=== PATIENT | female | born 1985 | race African-American/Black ===

== ENCOUNTER 2023-06-11 18:16 | Emergency (ER) | payer SELFPAY ==
[2023-06-11 18:19] VITALS: BP 193/138; PULSE 78; RESP 18; TEMP 36.8; O2SAT 100
--- NOTE | 2023-06-11 18:27 | ED.GENADUL_ITS ---
Discharge Plan Disposition Patient Disposition: Home Condition: Stable Discharge Details Clinical Impression: Anaphylaxis ED Provider: Hao Kendrick Home Meds and New Rx's Prescriptions: New prednisone 20 mg tablet 60 mg PO DAILY 4 Days Qty: 12 0RF epinephrine 0.3 mg/0.3 mL auto-injector 0.3 mg IM Q5-15M PRNQty: 2 0RF Rx Instructions: do not exceed 3 doses per episode Continued hydralazine 10 mg Tablet 10 mg PO Q8-10H chlorthalidone 25 mg Tablet 25 mg PO DAILY amitriptyline 25 mg Tablet 25 mg PO HS lisinopril 20 mg Tablet 20 mg PO DAILY diltiazem HCl 120 mg Capsule,Extended Release 24 Hr 120 mg PO DAILY ondansetron HCl 4 mg Tablet 4 mg PO PRN PRN Discharge Instructions Instructions: Anaphylaxis (ED) Additional Instructions: If you have recurrent swelling with itching, difficulty breathing or nausea vomiting use your epi pen and return to the emergency department you can take benadryl as needed, follow dosing instructions on packaging Medical Decision Making 37 yo female who states 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 She states this is similar to prior episodes when she was exposed to broccoli. She is hypertensive on arrival, no hypoxia, she does have noticeable swelling of her face and arms as well as her legs, no rashes but she is scratching her arms and legs, clear lungs, soft abdomen. Given her swelling, pruritus and n/v concern for anaphylxis and will treat with im epi, iv benadryl famotidine and methylprednisolone and reassess. pt feels much better, remains stable, will continue to monitor. pt continues to feel well, no gi or respiratory symptoms and itching symptoms have resolved. She has mild swelling of the face pt continues to be stable, no pruritus or gi/respiratory symptoms and feels well enough for d/c, given no recurrence since being here feel she can be safely discharged, will provide an epi pen and return precautions given. Differential Diagnosis Differential Diagnosis: allergic reaction, anaphylaxis HPI General Mode of arrival: ambulatory . Date/Time Provider Initiated Documentation: 06/11/23 18:22 . Limitations to Documentation: no limitations . Information obtained by: patient . History of Present Illness 37 year old F presents to the emergency department with the chief complaint of swelling of face , described as moderate, Patient started experiencing this minute(s) (20) and it has been constant. No relieving factors improve symptom(s), No exacerbating factors reported . Patient notes denies chest pain, fever/chills and shortness of breath. Patient did receive the following treatments prior to arrival, none Related Data Home Medications Medication Instructions Recorded Confirmed amitriptyline 25 mg tablet 25 mg PO HS 06/11/23 06/11/23 chlorthalidone 25 mg tablet 25 mg PO DAILY 06/11/23 06/11/23 diltiazem HCl 120 mg capsule,24 120 mg PO DAILY 06/11/23 06/11/23 hr,extended release epinephrine 0.3 mg/0.3 mL 0.3 mg (0.3 mL) IM Q5-15M PRN #2 ea 06/11/23 injection, auto-injector hydralazine 10 mg tablet 10 mg PO Q8-10H 06/11/23 06/11/23 lisinopril 20 mg tablet 20 mg PO DAILY 06/11/23 06/11/23 ondansetron HCl 4 mg tablet 4 mg PO PRN PRN 06/11/23 06/11/23 prednisone 20 mg tablet 60 mg PO DAILY 4 days #12 tabs 06/11/23 Previous Rx's Medication Instructions Recorded epinephrine 0.3 mg/0.3 mL 0.3 mg (0.3 mL) IM Q5-15M PRN #2 ea 06/11/23 injection, auto-injector prednisone 20 mg tablet 60 mg PO DAILY 4 days #12 tabs 06/11/23 Allergies Allergy/AdvReac Type Severity Reaction Status Date / Time broccoli Allergy Severe Swelling/Ed Unverified 06/11/23 18:22 janeth General Stated Complaint: Allergic ANDRIY: 2 Review of Systems All systems reviewed & are unremarkable except as noted in HPI and below Constitutional Constitutional: Denies chills, Denies fever(s) and Denies weakness Cardiovascular Cardiovascular: Denies chest pain and Denies dyspnea Respiratory Respiratory: Denies cough and Denies dyspnea Gastrointestinal Gastrointestinal: Denies abdominal pain, Denies nausea and Denies vomiting Neurologic Neurologic: Denies weakness Psychiatric Psychiatric: Denies depression PFSH All Active Problems (Updated 06/11/23 @ 20:08 by Hao Kendrick MD) Anaphylaxis (Acute) Social History Smoking/Tobacco Use Status: Never Smoking risk assessment performed?: Yes Alcohol Intake: current Alcohol Intake frequency: holidays/special occasions only Alcohol type: wine Drug use: Never Substance use type: does not use Housing: house Exam Const General: no acute distress Orientation: alert [facility] Head: no palpable skull fracture and atraumatic Ears: external ears normal General nose exam: external nose normal Mouth: moist mucous membranes Eyes General: appearance normal, both eyes and all related structures Neck Neck: normal visual inspection Resp Effort & Inspection: normal respiratory effort and able to speak in complete sentences Auscultation: clear to auscultation bilaterally Cardio Rate: regular rate GI Palpation: soft and nontender Skin General skin exam: no rashes or lesions noted Neuro General: patient alert and patient oriented x3 Extrem General: normal to inspection Psych Mental Status: mental status grossly normal Course Vital Signs Vital signs: Vital Signs Temperature 36.8 C 06/11/23 18:19 Pulse 78 06/11/23 18:19 Respiratory Rate 18 06/11/23 18:19 Blood Pressure 193/138 H 06/11/23 18:19 Pulse Oximetry 100 06/11/23 18:19 Temperature 36.8 C 06/11/23 18:19 Temperature Source Oral 06/11/23 18:19 Pulse 78 06/11/23 18:19 Respiratory Rate 18 06/11/23 18:19 Respiratory Effort Normal, Non-Labored 06/11/23 18:25 Respiratory Pattern Normal 06/11/23 18:25 Blood Pressure 193/138 H 06/11/23 18:19 Blood Pressure Position Sitting 06/11/23 18:19 Pulse Oximetry 100 06/11/23 18:19 Oxygen Delivery Method Room Air 06/11/23 18:19 Oxygen Flow Rate 0 06/11/23 18:19 Pain Level 0 06/11/23 18:19 Critical Care Time Critical Care Time Critical Care Time: Yes Total Critical Care Time: 60 (minutes) Attestation: time spent on frequent reassessments, hemodynamic monitoring in a patient with potential to deteriorate at any time and requiring epinephrine for anaphylaxis. PAWSS Have you Been Recently Intoxicated or Drunk Within the Last 30 days?: No Have you Ever Experienced Previous Episodes of Alcohol Withdrawal?: No Have you ever Experienced Withdrawal Seizures?: No Have you ever Experienced Delirium Tremens(DT)s?: No Have you ever undergone Alcohol Rehabilitation Treatment (i.e, inpt ot outpatient treatment programs)?: No Have you ever Experienced Blackouts?: No Have you ever Combined Alcohol with other Downers within the last 90 days?: No Have you ever Combined Alcohol with any other Substance of Abuse during the last 90 days?: No Result: 0
[2023-06-11] MEDS: Famotidine 20 MG/2 ML VIAL IVP (18:37)
[2023-06-11] MEDS: diphenhydrAMINE 50 MG/ML VIAL IVP (18:38)
[2023-06-11] MEDS: methylPREDNISolone SUCC 125 MG VIAL IVP (18:38)
[2023-06-11] MEDS: EPINEPHrine 1 MG/ML AMP pres-free 0.5 MG IM (18:38)
[2023-06-11 18:53] VITALS: BP 187/71; PULSE 71; RESP 22; O2SAT 100
[2023-06-11] MEDS: Normal Saline 1,000 ML 1000 ML IV (18:56)
[2023-06-11 19:15] VITALS: BP 134/80; PULSE 64; RESP 14; O2SAT 100
[2023-06-11 20:22] VITALS: BP 167/87; PULSE 86; RESP 14; O2SAT 98
[2023-06-11] MEDS: EPINEPHrine 0.3 MG KIT IM (20:22)
== END 2023-06-11 20:23 | disposition home or self-care (01) ==
LOC: ER 21:44
PROVIDERS: Emergency Provider Emergency Medicine
DX: T78.2XXA Anaphylactic shock, unspecified, initial encounter (principal)
CPT/HCPCS: 96361; 96372; 96374; 96375; 99284; J0171; J1200; J2930

== ENCOUNTER 2023-07-13 23:15 | Emergency (ER) | payer SELFPAY ==
[2023-07-13 23:21] VITALS: BP 166/99; PULSE 60; RESP 16; TEMP 37; O2SAT 99
--- NOTE | 2023-07-13 23:43 | ED.GENADUL_ITS ---
Discharge Plan Disposition Patient Disposition: Home Condition: Improving Discharge Details Clinical Impression: Herniation of intervertebral disc between L5 and S1 Primary Care Provider: Unknown,Unknown ED Provider: Madyson Lee Home Meds and New Rx's Prescriptions: New methocarbamol 500 mg tablet 500 mg PO QID Qty: 20 0RF lidocaine [Lidoderm] 5 % adhesive patch,medicated 3 patch topical DAILY Qty: 30 0RF Rx Instructions: leave on most painful area for up to 12 hrs, as needed for pain hydrocodone-acetaminophen 5-325 mg tablet 1 tab PO Q6H PRNQty: 10 0RF No Action hydralazine 10 mg Tablet 10 mg PO Q8-10H chlorthalidone 25 mg Tablet 25 mg PO DAILY amitriptyline 25 mg Tablet 25 mg PO HS lisinopril 20 mg Tablet 20 mg PO DAILY diltiazem HCl 120 mg Capsule,Extended Release 24 Hr 120 mg PO DAILY ondansetron HCl 4 mg Tablet 4 mg PO PRN PRN epinephrine 0.3 mg/0.3 mL auto-injector 0.3 mg IM Q5-15M PRNQty: 2 0RF Rx Instructions: do not exceed 3 doses per episode Discharge Instructions Instructions: Sciatica (ED), Lumbar Radiculopathy (ED) Additional Instructions: 1. Alternate at 1000 mg of acetaminophen every 3 hours with 400 to 600 mg of ibuprofen as needed for pain. You may take the hydrocodone/acetaminophen for severe pain not relieved by afjm-drw-exysccy medications and or Lidoderm patches. Hydrocodone can cause drowsiness and constipation, and you should not drink alcohol, drive, operate heavy machinery or make important decisions while taking this medication. 2. You can take Robaxin, a muscle relaxer as needed for muscle spasm. This can also cause drowsiness. 3. You should be contacted by the primary care office and physical therapy to arrange for follow-up appointments with both. 4. Return to the emergency department if you develop numbness and tingling in the genital areas or have problems controlling bowels or bladder or if you develop any new or worrisome symptoms such as abdominal pain fever or intractable pain. 5. Avoid lifting more than 5 or 10 pounds. Stand Alone Forms: Work Release Discharge Data Discharge Physician: Madyson Lee Medical Decision Making This is a healthy 38-year-old female who presents with symptoms of an L5-S1 radiculopathy at work. The pain came on gradually and was not initiated by 1 particular activity or trauma. She does not have any mechanism for a fracture of her back and I do not see an indication for plain films. We will check a urine for infection and blood. Prescribed lidocaine, Robaxin, hydrocodone and have her follow-up with primary care and physical therapy. Medical Records Medical records reviewed: Yes I reviewed the patient's medical records. Lab Data Lab results reviewed: Yes I reviewed the patient's lab results. Lab results narrative: No evidence of UTI. HPI General Mode of arrival: ambulatory . Date/Time Provider Initiated Documentation: 07/13/23 23:43 . Limitations to Documentation: no limitations . Information obtained by: patient and RN notes reviewed . History of Present Illness with intensity rated at 8. and is localized to the back. and it has been constant. Movement worsens symptoms . HPI Narrative: Time seen was 11:44 PM in bed 7. 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 She describes the pain as 8 out of 10 and burning. It is bilateral but worse on the right. The pain radiates down both legs to the calf but she has numbness in the toes of her right foot. The pain is constant and aggravated by movement and walking. She denies any saddle anesthesia. She denies any bowel or bladder incontinence or retention. She denies any dysuria or vaginal discharge. She denies any other trauma. She denies any fevers. She denies any previous episodes. She did take 2 acetaminophen prior to arrival without any significant improvement. In 2007 she had a cervical injury that was treated conservatively, which affected the left arm. She has a leftover TENS unit that she has with her. She does not have a local primary care provider. The pain is aggravated by going from sitting to standing and from standing to sitting. She is scheduled to stay in the area for several months. Related Data Home Medications Medication Instructions Recorded Confirmed amitriptyline 25 mg tablet 25 mg PO HS 06/11/23 07/13/23 chlorthalidone 25 mg tablet 25 mg PO DAILY 06/11/23 07/13/23 diltiazem HCl 120 mg capsule,24 120 mg PO DAILY 06/11/23 07/13/23 hr,extended release epinephrine 0.3 mg/0.3 mL 0.3 mg (0.3 mL) IM Q5-15M PRN #2 ea 06/11/23 07/13/23 injection, auto-injector hydralazine 10 mg tablet 10 mg PO Q8-10H 06/11/23 07/13/23 lisinopril 20 mg tablet 20 mg PO DAILY 06/11/23 07/13/23 ondansetron HCl 4 mg tablet 4 mg PO PRN PRN 06/11/23 07/13/23 hydrocodone 5 mg-acetaminophen 325 1 tab PO Q6H PRN #10 tabs 07/14/23 mg tablet lidocaine 5 % topical patch 3 patch topical DAILY #30 ea 07/14/23 (Lidoderm) methocarbamol 500 mg tablet 500 mg PO QID #20 tabs 07/14/23 Previous Rx's Medication Instructions Recorded epinephrine 0.3 mg/0.3 mL 0.3 mg (0.3 mL) IM Q5-15M PRN #2 ea 06/11/23 injection, auto-injector hydrocodone 5 mg-acetaminophen 325 1 tab PO Q6H PRN #10 tabs 07/14/23 mg tablet lidocaine 5 % topical patch 3 patch topical DAILY #30 ea 07/14/23 (Lidoderm) methocarbamol 500 mg tablet 500 mg PO QID #20 tabs 07/14/23 Allergies Allergy/AdvReac Type Severity Reaction Status Date / Time broccoli Allergy Severe Swelling/Ed Unverified 07/13/23 23:27 janeth General Stated Complaint: Nk/Back Pain ANDRIY: 3 Review of Systems Narrative: see hpi No fevers no chills, no saddle anesthesia, no bowel or bladder incontinence or retention All systems reviewed & are unremarkable except as noted in HPI and below Constitutional Constitutional: Denies fever(s) PFSH All Active Problems Herniation of intervertebral disc between L5 and S1 (Acute) Social History Smoking/Tobacco Use Status: Never Smoking risk assessment performed?: Yes Alcohol Intake: current Alcohol Intake frequency: holidays/special occasions only Alcohol type: wine Drug use: Never Substance use type: does not use Housing: house Exam Const General: cooperative, healthy appearing, well developed, well groomed and well hydrated Nutritional Appearance: average body habitus and well nourished Orientation: alert, awake and oriented x3 Other: The patient is a well-developed well-nourished female who is mildly hypertensive. She appears uncomfortable moving slowly. HENMT Head: normal to inspection, normocephalic and atraumatic Ears: hearing grossly normal bilaterally and external ears normal General nose exam: external nose normal, nares normal and no nasal discharge Face and sinus: normal facial exam, sinuses nontender and face symmetric Mouth: oral mucosae normal, lip normal, tongue normal, oropharynx normal, moist mucous membranes and other (Normal phonation. The patient is handling secretions.) Throat: posterior oropharynx normal and uvula midline Eyes General: appearance normal, both eyes and all related structures Eyelids: eyelids normal Conjunctivae: conjunctivae normal Sclera: sclerae normal Cornea: corneas normal Pupils: PERRL EOM: EOM intact bilaterally and No nystagmus Neck Neck: normal visual inspection, full ROM, no lymphadenopathy, no meningeal signs, trachea midline and supple Lymphatic: no lymphadenopathy noted Chest Chest: normal inspection of the chest Resp Effort & Inspection: normal respiratory effort, able to speak in complete sentences, no audible wheezes, no nasal flaring, no respiratory distress, no retractions, no stridor, not tachypneic, no tracheal deviation, no use of accessory muscles, No prolonged expiratory phase and other (Normal inspiratory to expiratory ratio.) Auscultation: clear to auscultation bilaterally, no rales, no rhonchi, no wheezes and no rubs Tactile Fremitus: tactile fremitus absent Cardio Jugular venous pressure: no JVD Palpation: normal PMI Rate: regular rate Rhythm: regular rhythm Heart Sounds: S1 normal, S2 normal, no gallops, no murmurs and no rubs GI Inspection: non-distended Palpation: soft, no hepatosplenomegaly, no guarding and nontender Percussion: normal to percussion Auscultation: normal bowel sounds Back/Spine/Pelvis Back: no CVA tenderness Cervical Spine: normal cervical lordosis, cervical ROM normal, No cervical muscular tenderness, No pain with cervical ROM, No cervical spinal tenderness and No step off deformity Thoracic/Lumbar Spine: thoracic and lumbar spine normal to inspection, paraspinal tenderness, thoraco-lumbar ROM limited and No thoracic spinal tenderness Pelvis: no pain with anterior-posterior compression and no pain with lateral compression Other: The patient has paralumbar muscle spasm greater on the right than on the left with a positive straight leg raise on the left. Skin General skin exam: no rashes or lesions noted, turgor normal, no petechiae, no purpura and other (Skin is normal for ethnicity.) Lesions: no lesions Rashes: no rashes Trauma: no lacerations or abrasions Neuro General: patient alert, patient awake, patient oriented x3, moves all extremities, no meningeal signs, no focal motor deficits and CN's II-XI intact bilaterally Cranial Nerves: CN's II-XI intact bilaterally, PERRL, accommodation normal, EOM intact bilaterally, no nystagmus, facial strength normal, tongue midline, hea ring normal and no nystagmus Cognition: normal cognition Speech: speech normal Motor: muscle tone normal throughout and strength 5/5 throughout DTR's: Rt Patellar: 2+, Lt Patellar: 2+, Rt Ankle: 1+ and Lt Ankle: 1+ Plantar Reflexes: Downgoing: bilateral Pupils: Normal pupillary reactivity/response: bilateral Other: The patient has decreased sensation in the L5-S1 distribution on the right. Motor function is 5 out of 5 in her bilateral lower extremities Extrem General: normal to inspection, full ROM, capillary refill normal, no clubbing, cyanosis or edema and no calf tenderness Psych Appearance: grossly normal Affect: normal affect Attitude: cooperative Thought Process: normal Thought Content: normal Insight: insight good Judgment: judgment good Other: The patient appears to have capacity make medical decisions. Course The patient received ibuprofen in the emergency department and was given 2 Vicodin to take home. I have discharged her with Robaxin, hydrocodone/acetaminophen, lidocaine patches. I have advised her to alternate acetaminophen every 3 hours with ibuprofen for mild to moderate pain and to use the lidocaine patches and her TENS unit as needed. She was advised to use hydrocodone/acetaminophen for severe pain at night. She is aware this can cause habituation, drowsiness, constipation and she was advised not to drink alcohol, drive, operate heavy machinery or make important decisions while taking this medication. She was given a note for work and advised not to lift more than 5 pounds or 2 partake in activities that aggravate her back pain. She was advised to return if she developed any new or worrisome symptoms such as saddle anesthe jackelyn, bowel or bladder incontinence retention, abdominal pain fever chills or any concerns. We have arranged for outpatient follow-up with primary care and physical therapy and I have written a note restricting her activities at work. The patient voiced understanding agree with the discharge plan. All her questions and concerns were addressed prior to discharge Vital Signs Vital signs: Vital Signs Temperature 37 C 07/13/23 23:21 Pulse 60 07/13/23 23:21 Respiratory Rate 16 07/13/23 23:21 Blood Pressure 166/99 H 07/13/23 23:21 Pulse Oximetry 99 07/13/23 23:21 Temperature 37 C 07/13/23 23:21 Temperature Source Temporal Artery Scan 07/13/23 23:21 Pulse 60 07/13/23 23:21 Respiratory Rate 16 07/13/23 23:21 Respiratory Effort Normal 07/13/23 23:21 Blood Pressure 166/99 H 07/13/23 23:21 Blood Pressure Position Sitting 07/13/23 23:21 Pulse Oximetry 99 07/13/23 23:21 Oxygen Delivery Method Room Air 07/13/23 23:21 Oxygen Flow Rate 0 07/13/23 23:21 Pain Level 8 07/13/23 23:21
[2023-07-14 00:25] LABS: Bilirubin Negative (Negative); Blood Negative (Negative); Clarity Sl Cloudy (Clear); Glucose Negative (Negative); Ketones Trace mg/dL (Negative); Leukocyte Esterase Negative (Negative); Nitrite Negative (Negative); Specific Gravity >= 1.030 (1.005-1.025); Urobilinogen 0.2 mg/dL (Up to 0.2); pH 5.5 (5-8)
[2023-07-14] MEDS: Ibuprofen 600 MG TAB PO (00:25)
[2023-07-14] MEDS: Lidocaine 5% Patch 1 PATCH TP (00:30)
--- NOTE | 2023-07-14 00:32 | NUR.NOTE ---
Pt placed on care management for back pain and physical therapy per Dr. Lee Nursing Note:
[2023-07-14 00:55] VITALS: BP 163/84; PULSE 53; RESP 16; TEMP 37; O2SAT 100
== END 2023-07-14 01:12 | disposition home or self-care (01) ==
PROVIDERS: Emergency Provider Emergency Medicine Emergency Medical Services
DX: M51.27 Other intervertebral disc displacement, lumbosacral region (principal)
CPT/HCPCS: 81025; 99283; 81003; 99284